=== PATIENT | male | born 1995 | race Caucasian/White ===

== ENCOUNTER 2017-04-27 07:38 | Emergency (ER) | payer OTHER ==
[~2017-04-27] VITALS: Ht 185.4 cm; Wt 117.9 kg
[2017-04-27 08:10] VITALS: BP 169/91
[2017-04-27] MEDS ORDERED: KETOROLAC TROMETH 60MG/2ML VIAL IM ONE (08:15)
== END 2017-04-27 09:50 | disposition home or self-care (01) ==
LOC: ER 07:38 → EDBD 07:38 → ER 09:45
DX: S16.1XXA Strain of muscle, fascia and tendon at neck level, initial encounter (principal); S46.912A Strain of unspecified muscle, fascia and tendon at shoulder and upper arm level, left arm, initial encounter; S30.1XXA Contusion of abdominal wall, initial encounter; F41.9 Anxiety disorder, unspecified; V43.52XA Car driver injured in collision with other type car in traffic accident, initial encounter; Y93.89 Activity, other specified; Y92.89 Other specified places as the place of occurrence of the external cause; Y99.8 Other external cause status
CPT/HCPCS: 72040; 73030; 96372; 99284; J1885

== ENCOUNTER 2017-08-05 23:30 | Emergency (ER) | payer OTHER ==
[~2017-08-05] VITALS: Ht 182.9 cm; Wt 122.5 kg
[2017-08-06 05:34] VITALS: BP 152/76
[2017-08-06] MEDS ORDERED: HYDROcodone-ACET 5/325MG TAB PO ONE (05:45)
== END 2017-08-06 06:27 | disposition home or self-care (01) ==
LOC: ER 23:30
DX: S40.011A Contusion of right shoulder, initial encounter (principal); W22.8XXA Striking against or struck by other objects, initial encounter; Y93.89 Activity, other specified; Y92.89 Other specified places as the place of occurrence of the external cause; Y99.8 Other external cause status
CPT/HCPCS: 29105; 73030